=== PATIENT | male | born 1990 | race Caucasian/White ===

== ENCOUNTER 2019-10-15 21:33 | Emergency (ER) | payer BC ==
[~2019-10-15] VITALS: Ht 170.2 cm; Wt 74.3 kg
[2019-10-15] MEDS ORDERED: FAMOTIDINE 20 MG/2 ML IV ONE (22:00)
[2019-10-15] MEDS ORDERED: SODIUM CHLORIDE FLUSH 10ML SYR IVF ONE (22:00)
[2019-10-15] MEDS ORDERED: SODIUM CHLORIDE 0.9% 1,000ML IVBOLUS ONE (22:00)
[2019-10-15] MEDS ORDERED: ONDANSETRON 2MG/ML, 2ML IVPush ONE (22:00)
[2019-10-15] MEDS ORDERED: MORPHINE SULFATE 4 MG/ML, 1ML IVPush PRN ×2 (22:00→22:30)
[2019-10-15] MEDS ORDERED: PANTOPRAZOLE 40 MG IV IVPush SCH (22:00)
[2019-10-15 22:11] LABS: BASOPHILS # (AUTO) 0.04 x10^3/uL (0-0.1); BASOPHILS % (AUTO) 1 % (0-1); EOSINOPHILS # (AUTO) 0.11 x10^3/uL (0-0.4); EOSINOPHILS % (AUTO) 1 % (1-7); LYMPHOCYTES # (AUTO) 2.33 x10^3/uL (1-3.4); LYMPHOCYTES % (AUTO) 30 % (22-44); MD NO; MEAN CORPUSCULAR HEMOGLOBIN 33.5 pg (27.5-34.5); MEAN CORPUSCULAR HGB CONC 33.9 g/dL (33.2-36.2); MEAN CORPUSCULAR VOLUME 98.8 fL (81-97); MEAN PLATELET VOLUME 10.6 fL (7.4-10.4); MONOCYTES # (AUTO) 0.53 x10^3/uL (0.2-0.8); MONOCYTES % (AUTO) 7 % (2-9); NEUTROPHILS # (AUTO) 4.83 x10^3/uL (1.8-6.8); NEUTROPHILS % (AUTO) 62 % (42-75); PLATELET COUNT 253 x10^3/uL (130-400); RED BLOOD COUNT 5.03 x10^6/uL (4.38-5.82); RED CELL DISTRIBUTION WIDTH 12.3 % (9.4-14.8)
[2019-10-15] MEDS ORDERED: MORPHINE SULFATE 4 MG/ML, 1ML ONE (22:12)
[2019-10-15] MEDS ORDERED: ONDANSETRON 2MG/ML, 2ML ONE (22:12)
[2019-10-15 22:17] LABS: MICROSCOPIC NOT IND
[2019-10-15 22:20] LABS: CULTURE INDICATED? NO
[2019-10-15] MEDS ORDERED: FAMOTIDINE 20 MG/2 ML ONE (22:21)
[2019-10-15] MEDS ORDERED: PANTOPRAZOLE 40 MG IV ONE (22:21)
[2019-10-15 22:22] LABS: ALANINE AMINOTRANSFERASE 24 U/L (12-78); ALBUMIN 4.1 g/dL (3.4-5.0); ANION GAP 10 mmol/L (5-15); CALCIUM 8.9 mg/dL (8.5-10.1); CHLORIDE 111 mmol/L (98-107)
[2019-10-15 22:25] LABS: ALKALINE PHOSPHATASE 73 U/L (45-117); BILIRUBIN,TOTAL 0.3 mg/dL (0.2-1.0); TOTAL PROTEIN 7.2 g/dL (6.4-8.2)
--- NOTE | 2019-10-15 22:29 | NUR ---
Patient presents to ER with epigastric pain which radiates into lower abdomen. Patient states the pain started 3 days ago. Patient rates his pain at a 6/10. He has been nauseous and had two episodes of vomiting today. He also states he's had black stools; no diarrhea. Patient is in NAD. Respirations even and unlabored.
[2019-10-15] MEDS ORDERED: PLEASE ENTER ALLERGIES MC SCH (22:30)
[2019-10-15 22:39] LABS: INTERNATIONAL NORMALIZED RATIO 1.01 (0.93-1.1); PROTHROMBIN TIME 10.7 Seconds (9.6-11.5)
[2019-10-15] MEDS ORDERED: OMNIPAQUE 350 MG/ML, 100ML BOTTLE ONE (22:42)
--- NOTE | 2019-10-16 00:15 | NUR ---
Patient started getting red and blotchy on his right side neck into face. Administered Benedryl per dec.
[2019-10-16] MEDS ORDERED: DIPHENHYDRAMINE 50 MG/ML, 1ML ONE (00:17)
[2019-10-16] MEDS ORDERED: DIPHENHYDRAMINE 50 MG/ML, 1ML IVPush ONE (00:30)
[2019-10-16] MEDS ORDERED: ONDANSETRON 2MG/ML, 2ML ONE (00:52)
[2019-10-16 00:56] VITALS: BP 106/61
[2019-10-16] MEDS ORDERED: ONDANSETRON 2MG/ML, 2ML IVPush ONE (01:00)
--- NOTE | 2019-10-16 01:20 | NUR ---
Redness and blotchiness decreased and nausea subsided. Patient discharge instructions given. All questions and concerns addressed. Patient ambulatory with a steady gait. Belongings with patient.
== END 2019-10-16 01:17 | disposition home or self-care (01) ==
LOC: ED 23:40
DX: R10.13 Epigastric pain (principal); R10.12 Left upper quadrant pain; R11.2 Nausea with vomiting, unspecified; F17.200 Nicotine dependence, unspecified, uncomplicated
CPT/HCPCS: 36415; 74177; 80053; 81003; 83690; 85025; 85610; 85730; 96374; 96375; 96376; 99284; C9113; J1200; J2270; J2405; J3490; Q9967